=== PATIENT | male | born 1990 | race African-American/Black ===

== ENCOUNTER 2017-11-03 12:51 | Outpatient (CLI) | payer OTHER ==
[2017-11-03] MEDS ORDERED: IOTHALAMATE MEGLUMINE 50 ML VIAL ONE (13:10)
[2017-11-03] MEDS ORDERED: GADOPENTETATE DIMEGLUMINE 5 ML VIAL IVP ONE ×2 (13:11→14:18)
[2017-11-03] MEDS ORDERED: BUFFERED LIDOCAINE 10 ML SYRINGE IU ONE (14:18)
[2017-11-03] MEDS ORDERED: IOTHALAMATE MEGLUMINE 50 ML VIAL IVP ONE (14:18)
--- NOTE | 2017-11-03 15:53 | XRAY Report ---
Procedure Date: 11/03/2017 Accession Number: [id number] / [id number] Procedure: FL - Arthrogram Needle Placement CPT Code: FULL RESULT: EXAM: Arthrogram Needle Placement DATE: 11/03/2017 2:13 PM CLINICAL HISTORY: PAIN IN RIGHT SHOULDER COMPARISON: None. TECHNIQUE: The risks, benefits, and alternatives of the procedure were discussed with the patient. All questions were answered. Written and verbal consent were obtained. The glenohumeral joint was marked under fluoroscopy and prepped and draped in a sterile manner. Local anesthesia was performed with 1% lidocaine. A 22-gauge needle was then inserted into the glenohumeral joint. 10 mL of a solution containing 25% 1% lidocaine, 25% iodinated contrast, and a 1:200 dilution of gadolinium contrast in sterile saline was then injected. The needle was removed without immediate complication. Other: None. Fluoroscopic exposure time: 1 minute 19 seconds. Number of fluoroscopic images: 6. FINDINGS: Bones and joints: No fracture or subluxation. Injection: Fluoroscopic images demonstrate needle placement and contrast in the glenohumeral joint. No contrast extravasation outside of the glenohumeral joint. IMPRESSION: Successful fluoroscopically guided arthrographic injection of the shoulder. [facility]
--- NOTE | 2017-11-04 18:21 | MRI Report ---
Procedure Date: 11/03/2017 Accession Number: [id number] / [id number] Procedure: MRI - Arthrogram Shoulder RT CPT Code: FULL RESULT: EXAM: RIGHT SHOULDER MRI ARTHROGRAM WITH CONTRAST EXAM DATE: 11/03/2017 02:44 PM. CLINICAL HISTORY: Pain in right shoulder. COMPARISON: None. TECHNIQUE: Multiplanar, multisequence T1-weighted and fluid-sensitive sequences of the shoulder after an arthrographic injection of dilute gadolinium, dictated under a separate exam. Other: None. FINDINGS: Acromioclavicular Region: The acromion is type II. 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 The coracoacromial and coracoclavicular ligaments are intact. There is no contrast or fluid in the subacromial/subdeltoid bursa. Glenohumeral Region: Posterior subluxation of the humeral head with respect to the glenoid. Prominent posterior glenohumeral joint loose body. Series 401 image 44, measuring up to 9 mm. The articular cartilage is unremarkable. The glenohumeral ligaments and joint capsule are unremarkable. Bone Marrow: No fracture, marrow edema or bone lesions. Labrum: Long-standing anterior labral tear with attachment to a focal periosteal sleeve. Series 501 image 13. Biceps Tendon: The long head of the biceps tendon and biceps emmanuel are intact. Musculature/Rotator Cuff: The subscapularis, supraspinatus, infraspinatus, and teres minor tendons are intact. No edema or fatty atrophy. Other: The subcutaneous tissues are unremarkable. IMPRESSION: 1. Type II unipartite undersurface osseous acromion shape. AC joint is moderately osteoarthritic.No fluid or contrast material is seen in the bursa. 2. Posterior subluxation of the humeral head with respect to the glenoid, fairly large posterior loose body at the glenohumeral joint measuring up to 9 mm. There also is a long-standing anterior labral tear with an old periosteal sleeve evulsion injury. 3. Long head biceps tendon, and rotator cuff appear unremarkable. [facility] MUSCULOSKELETAL RADIOLOGY SECTION
== END 2017-11-03 12:52 | disposition home or self-care (01) ==
LOC: DI 12:51
PROVIDERS: ATTEND Student in an Organized Health Care Education/Training Program
DX: M19.011 Primary osteoarthritis, right shoulder (principal); S43.021A Posterior subluxation of right humerus, initial encounter; M24.011 Loose body in right shoulder; S43.491A Other sprain of right shoulder joint, initial encounter
CPT/HCPCS: 23350; 73222; 77002; Q9961

== ENCOUNTER 2017-12-30 20:37 | Emergency (ER) | payer OTHER ==
--- NOTE | 2017-12-30 20:59 | ED Physician Documentation ---
PD HPI LOWER EXT INJURY - Stated complaint Stated Complaint: R FOOT PX - Chief complaint Chief Complaint: General - History obtained from History obtained from: Patient - History of Present Illness PD HPI LOW EXT INJURY LOCATION: Right, Knee Type of injury: Fall, Twist Where injury occurred: Park Timing - onset: Today Timing - details: Abrupt onset, Still present Improved by: Immobilization Worsened by: Moving, Palpating Similar symptoms before: Has not had sx before Recently seen: Not recently seen - Additional information Additional information: patient is a 27 year old male with no significant past medical history who is presenting to the emergency department for right knee pain. patient was playing football when he thinks he twisted his knee and then fell on it. patient now has pain on the anterior medial portion of his knee. Review of Systems Ten Systems: 10 systems reviewed and negative Musculoskeletal: reports: Extremity pain, Joint pain, Joint swelling PD PAST MEDICAL HISTORY - Past Surgical History Past Surgical History: No - Allergies Allergies/Adverse Reactions: Allergies Allergy/AdvReac Type Severity Reaction Status Date / Time No Known Drug Allergies Allergy Verified 12/30/17 20:44 - Social History Does the pt smoke?: Yes Smoking Status: Current some day smoker Does the pt drink ETOH?: Yes Does the pt have substance abuse?: No - Immunizations Immunizations are current?: Yes - POLST Patient has POLST: No PD ED PE NORMAL - Vitals Vital signs reviewed: Yes - General General: Alert and oriented X 3 - HEENT HEENT: Atraumatic - Cardiac Cardiac: RRR - Respiratory Respiratory: No respiratory distress - Abdomen Abdomen: Non distended - Derm Derm: Normal color - Neuro Neuro: Alert and oriented X 3, No motor deficit, Normal speech Eye Opening: Spontaneous PD ED PE EXPANDED - Extremities Extremities: Right knee (mild anterior medial tenderness, no joint laxity, small effusion) Results - Vitals Vitals: Vital Signs - 24 hr 12/30/17 20:42 Temperature 37.4 C Heart Rate 91 Respiratory 16 Rate Blood Pressure 142/77 H O2 Saturation 97 Oxygen O2 Source Room air - Rads (name of study) right knee Radiology: Final report received (no acute fracture or dislocation) PD MEDICAL DECISION MAKING - ED course Complexity details: reviewed old records, reviewed results, re-evaluated patient, considered differential, d/w patient ED course: Patient was seen and examined at bedside. patient was well appearing and in no distress. patient was sent for imaging. when patient returned results were reviewed. there was no acute fracture or dislocation. Patient was placed in an bryan bandage and given crutches. patient was stable for discharge with outpatient follow up. - Sepsis Event Vital Signs: Vital Signs - 24 hr 12/30/17 20:42 Temperature 37.4 C Heart Rate 91 Respiratory 16 Rate Blood Pressure 142/77 H O2 Saturation 97 Oxygen O2 Source Room air Departure - Departure Disposition: Home, Self Care Clinical Impression: Right knee pain Condition: Good Instructions: ED Knee Pain [facility] Follow-Up: NANI LUBIN MD [Primary Care Provider] - Comments: Your diagnostics today are within normal limits. there is no acute fracture or dislocation. You should ice your knee at least 4 times a day and try to keep it elevated. You can wrap it for comfort. You should follow up with your doctor if your symptoms persist as the only definitive test would be to get an mri. You may return to the emergency department at any time for new, worsening or uncontrollable symptoms. Discharge Date/Time: 12/30/17 22:00
--- NOTE | 2017-12-30 21:40 | XRAY Report ---
Reason: knee pain after playing football Procedure Date: 12/30/2017 Accession Number: [id number] / [id number] Procedure: XR - Knee 3 View RT CPT Code: FULL RESULT: EXAM: RIGHT KNEE RADIOGRAPHY EXAM DATE: 12/30/2017 09:15 PM. CLINICAL HISTORY: Knee pain after playing football. COMPARISON: None. TECHNIQUE: 3 views. FINDINGS: Bones: Normal. No fractures or bone lesions. Joints: Normal. No effusion. No subluxations. Soft Tissues: Normal. No soft tissue swelling. IMPRESSION: Normal knee radiography. [facility]
[2017-12-30] MEDS ORDERED: IBUPROFEN 600 MG TABLET PO STA (21:43)
[2017-12-30 21:57] VITALS: BP 137/81
== END 2017-12-30 22:00 | disposition home or self-care (01) ==
LOC: ED 20:37
DX: M25.561 Pain in right knee (principal); F17.200 Nicotine dependence, unspecified, uncomplicated; W18.30XA Fall on same level, unspecified, initial encounter; X50.1XXA Overexertion from prolonged static or awkward postures, initial encounter; W22.8XXA Striking against or struck by other objects, initial encounter; Y93.61 Activity, american tackle football; Y92.830 Public park as the place of occurrence of the external cause
CPT/HCPCS: 73562; 99282; 99283; A9270

== ENCOUNTER 2018-01-26 09:04 | Outpatient (CLI) | payer OTHER ==
--- NOTE | 2018-01-26 13:46 | MRI Report ---
Reason: PAININ RT KNEE Procedure Date: 01/26/2018 Accession Number: [id number] / [id number] Procedure: MRI - Knee RT W/O CPT Code: FULL RESULT: EXAM: RIGHT KNEE MRI WITHOUT CONTRAST EXAM DATE: 01/26/2018 10:00 AM. CLINICAL HISTORY: Pain in right knee. COMPARISON: None. TECHNIQUE: Multiplanar, multisequence T1-weighted and fluid-sensitive sequences of the knee without contrast. Other: None. FINDINGS: Cruciate ligaments: The posterior cruciate ligament appears normal. The anterior cruciate ligament is completely torn. Medial meniscus: Complex tear at the posterior horn with vertical and horizontal components. Vertical tear continues throughout the posterior and mid body. Lateral meniscus: Complex tear involving the inner half of the posterior horn with full-thickness radial component. Collateral ligaments: Soft tissue thickening and edema associated with the medial collateral ligament. Possible partial disruption of a small number of anterior fibers. Otherwise intact. The fibular collateral ligament appears intact. Bones and articular surfaces: Mild cartilage thinning and surface irregularity in the medial and lateral compartments. Prominent marrow edema consistent with bone contusions at the posterior aspect of the medial and lateral tibial plateau as well as the periphery of the mid medial and mid lateral femoral condyles. Moderate-sized joint effusion. There may be some stranding of blood product within the joint effusion superiorly. Moderate cartilage thinning and fissuring at the medial facet of the patella. Possibility of thickened ill-defined medial plica. Extensor mechanism: The patellar tendon and quadriceps insertion appear intact. IMPRESSION: 1. Tear of the anterior cruciate ligament with corresponding bone contusions. 2. Grade 1 versus mild grade 2 sprain of the medial collateral ligament. 3. Moderate-sized joint effusion. 4. Complex full-thickness radial tear at the posterior horn lateral meniscus. 5. Medial meniscus tears including complex horizontal and vertical tear of the posterior horn. Vertical tear at the periphery of the body. [facility] MUSCULOSKELETAL RADIOLOGY SECTION
== END 2018-01-26 09:05 | disposition home or self-care (01) ==
LOC: DI 09:04
PROVIDERS: ATTEND Student in an Organized Health Care Education/Training Program
DX: S83.281A Other tear of lateral meniscus, current injury, right knee, initial encounter (principal); S83.241A Other tear of medial meniscus, current injury, right knee, initial encounter; S83.511A Sprain of anterior cruciate ligament of right knee, initial encounter; S83.411A Sprain of medial collateral ligament of right knee, initial encounter; M25.461 Effusion, right knee

== ENCOUNTER 2018-04-24 06:05 | Day surgery (SDC) | payer OTHER ==
[2018-04-24] MEDS ORDERED: LACTATED RINGERS 1,000 ML IV ONE ×3 (06:50→14:15)
[2018-04-24] MEDS ORDERED: DEXAMETHASONE 4 MG/ML VIAL ONE (07:00)
[2018-04-24] MEDS ORDERED: fentaNYL 100 MCG/2 ML VIAL ONE ×2 (07:00→12:32)
[2018-04-24] MEDS ORDERED: MIDAZOLAM 2 MG/2 ML VIAL ONE (07:00)
[2018-04-24] MEDS ORDERED: ROPIVACAINE 0.5% PF 20 ML AMPULE ONE (07:02)
--- NOTE | 2018-04-24 07:03 | ANESTHESIA ---
Pre-Anesthesia VS, & Labs - Diagnosis Right knee ACL and menuscus tears - Procedure Right knee ACL reconstruction, medial and lateral meniscus repair vs debridement Vital Signs: Temp Pulse Resp BP Pulse Ox 36.7 C 84 18 127/99 H 97 04/24/18 06:30 04/24/18 06:30 04/24/18 06:30 04/24/18 06:30 04/24/18 06:30 Height 6 ft 5 in Weight (kg) 113.4 kg Body Mass Index 28.8 - NPO >8 hours Home Medications and Allergies Home Medications: Ambulatory Orders Ibuprofen [Motrin] 800 mg PO Q8H PRN 04/13/18 Ibuprofen [Motrin] 800 mg PO Q8H PRN 04/13/18 Allergies/Adverse Reactions: Allergies Allergy/AdvReac Type Severity Reaction Status Date / Time No Known Drug Allergies Allergy Verified 04/13/18 12:32 Anes History & Medical History - Anesthetic History Family history of Anesthesia Complications: Denies Family history of Malignant Hyperthermia: Denies - Medical History Cardiovascular: reports: None Pulmonary: reports: None Gastrointestinal: reports: None Urinary: reports: None Neuro: reports: None Musculoskeletal: reports: Other Endocrine/Autoimmune: reports: None Blood Disorders: reports: None Skin: reports: None Smoking Status: Current some day smoker (1 pack/week) Psychosocial: reports: Alcohol (3 mixed drinks/ week) Exam General: Alert, Oriented x3, Cooperative, No acute distress Dental: WNL Mouth Openin Fingerbreadth Neck Mobility: Normal Mallampati classification: II Thyromental Distance: 4-6 cm Respiratory: Lungs clear, Normal breath sounds, No respiratory distress, No accessory muscle use Cardiovascular: Regular rate, Normal S1, Normal S2, No murmurs Mental/Cognitive Status: Alert/Oriented X3, Normal for patient Plan Anesthesia Type: General, Femoral Block (right) Regional Block: Per Surgeon's request for Post Op pain control Consent for Procedure(s) Verified and Reviewed: Yes Code Status: Attempt Resuscitation ASA classification: 2-Mild systemic disease Is this case an emergency?: No
[2018-04-24] MEDS ORDERED: BUPIVACAINE 0.25% PF 30 ML VIAL ONE (07:19)
[2018-04-24] MEDS ORDERED: EPINEPHrine 1 MG/ML AMP ONE (07:19)
[2018-04-24] MEDS ORDERED: ceFAZolin 3 GM in SODIUM CHLORIDE 0.9% 100ML 100 ML IV ONE (08:00)
--- NOTE | 2018-04-24 08:00 | ANESTHESIA PROCEDURE NOTE ---
Diagnosis: Right ACL and meniscal tear Procedure: Right femoral nerve block Consent for Procedure(s) Verified and Reviewed: Yes Height and Weight: Height 6 ft 5 in Weight (kg) 113.4 kg Body Mass Index 28.8 Vital Signs: Temp Pulse Resp BP Pulse Ox 36.7 C 84 18 127/99 H 97 04/24/18 06:30 04/24/18 06:30 04/24/18 06:30 04/24/18 06:30 04/24/18 06:30 Allergies No Known Drug Allergies Allergy (Verified 04/13/18 12:32) Requesting Provider: Abby ASA classification: 2-Mild systemic disease Is this case an emergency?: No Anes. Monitoring and Equipment: Non-invasive BP, Pulse oximetery, Sterile prep and drape Anes. Procedure Start Time: 07:25 Anes. Procedure Stop Time: 07:35 Procedure Notes: After time out was performed and site marked by surgeon, the right groin was prepped with chloroprep. Ultrasound was used to visualize the right femoral ner ve. A 22G stimiplex needle was directed toward the nerve under ultrasound guidance. A total of 30ml of 0.5% ropivicaine plus 4mg decadron was injected around the nerve with adequate spread noted. Patient tolerated the procedure well. A total of 100mcg fentanyl and 2mg versed was given during the procedure for patient comfort. Full evaluation pending.
[2018-04-24] MEDS ORDERED: fentaNYL 100 MCG/2 ML VIAL IVP ONE (10:07)
[2018-04-24] MEDS ORDERED: PROPOFOL 200 MG/20 ML VIAL IVP ONE (10:07)
[2018-04-24] MEDS ORDERED: ePHEDrine 50 MG/ML VIAL IVP ONE (10:07)
[2018-04-24] MEDS ORDERED: KETOROLAC 30 MG/ML VIAL IVP ONE (10:07)
[2018-04-24] MEDS ORDERED: ROCURONIUM 50 MG/5 ML VIAL IVP ONE (10:07)
[2018-04-24] MEDS ORDERED: LIDOCAINE-MPF 2% 5 ML VIAL IM ONE (10:07)
[2018-04-24] MEDS ORDERED: ONDANSETRON 4 MG/2 ML VIAL IVP ONE (10:07)
[2018-04-24] MEDS ORDERED: ONDANSETRON 4 MG/2 ML VIAL IVP PRN (12:03)
[2018-04-24] MEDS ORDERED: oxyCODONE 5 MG TABLET PO PRN (12:03)
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
[2018-04-24] MEDS: HYDROmorphone 1 MG/ML CARPUJECT ONE ×2 (12:35→12:45)
[2018-04-24] MEDS ORDERED: ONDANSETRON 4 MG/2 ML VIAL ONE (12:50)
[2018-04-24] MEDS ORDERED: oxyCODONE 5 MG TABLET ONE (13:36)
[2018-04-24 14:34] VITALS: BP 126/76
--- NOTE | 2018-04-24 15:13 | XRAY Report ---
Reason: s/p ACL recon, in PACU Procedure Date: 04/24/2018 Accession Number: [id number] / [id number] Procedure: XR - Knee 2 View RT CPT Code: FULL RESULT: EXAM: RIGHT KNEE RADIOGRAPHY EXAM DATE: 04/24/2018 12:42 PM. CLINICAL HISTORY: Status post ACL recon, in PACU. COMPARISON: Right knee 3 views 12/30/2017. TECHNIQUE: 2 views. FINDINGS: Bones: Postsurgical changes with no fracture or dislocation. Joints: Interval placement of a tibial anchoring screw as well as an ACL repair anchor along the lateral aspect of the femoral condyle consistent with ACL repair. Soft Tissues: Soft tissue gas consistent with immediate postoperative state. IMPRESSION: ACL repair. [facility]
== END 2018-04-24 06:06 | disposition home or self-care (01) ==
LOC: SDS 06:05
PROVIDERS: ATTEND Orthopaedic Surgery
PROC: 0SBC4ZZ Excision of Right Knee Joint, Percutaneous Endoscopic Approach (ICD-10-PCS; 2018-04-24)
PROC: 0MRN47Z Replacement of Right Knee Bursa and Ligament with Autologous Tissue Substitute, Percutaneous Endoscopic Approach (ICD-10-PCS; 2018-04-24)
PROC: 0LBQ0ZZ Excision of Right Knee Tendon, Open Approach (ICD-10-PCS; 2018-04-24)
PROC: 0SQC4ZZ Repair Right Knee Joint, Percutaneous Endoscopic Approach (ICD-10-PCS; principal; 2018-04-24 07:30)
DX: S83.511A Sprain of anterior cruciate ligament of right knee, initial encounter (principal); S83.231A Complex tear of medial meniscus, current injury, right knee, initial encounter; S83.281A Other tear of lateral meniscus, current injury, right knee, initial encounter; X50.1XXA Overexertion from prolonged static or awkward postures, initial encounter; Y93.61 Activity, american tackle football; Y99.8 Other external cause status; F17.210 Nicotine dependence, cigarettes, uncomplicated
CPT/HCPCS: 29882; 29888; 73560; A9270; J1170; J7120

== ENCOUNTER 2018-05-22 16:33 | Emergency (ER) | payer OTHER ==
[2018-05-22 16:47] VITALS: BP 143/68
--- NOTE | 2018-05-22 16:49 | ED Physician Documentation ---
PD HPI HEENT - Stated complaint Stated Complaint: FEVER/SORE THROAT - History obtained from History obtained from: Patient - History of Present Illness Timing - onset: Yesterday Timing - details: Still present Location: Throat Worsens: [place] Associated symptoms: Fever, Cough Similar symptoms before: Has not had sx before - Additional information Additional information: The patient is an otherwise healthy 27-year-old male who presents with sore throat that started last night and is worse today. He has had fever and chills, and measured his temperature at 102.5 earlier today. He took Tylenol at noon, 4-1/2 hours prior to arrival. He reports cough that is productive of scant sputum production. He denies headache, nausea or vomiting, or myalgias. He denies history of similar symptoms in the past. Vaccinations are up-to-date. Review of Systems Constitutional: reports: Fever, Chills Ears: denies: Ear pain Nose: denies: Congestion Throat: reports: Sore throat Cardiac: denies: Chest pain / pressure Respiratory: reports: Cough. denies: Dyspnea GI: denies: Abdominal Pain, Nausea, Vomiting : denies: Dysuria Skin: denies: Rash Musculoskeletal: denies: Back pain Neurologic: denies: Headache PD PAST MEDICAL HISTORY - Past Medical History Cardiovascular: None Respiratory: None Neuro: None Endocrine/Autoimmune: None GI: None : None HEENT: None Psych: None Musculoskeletal: Other Derm: None - Past Surgical History Past Surgical History: No - Present Medications Home Medications: Ambulatory Orders Medication Instructions Recorded Confirmed Ibuprofen [Motrin] 800 mg PO Q8H PRN 04/13/18 04/13/18 - Allergies Allergies/Adverse Reactions: Allergies Allergy/AdvReac Type Severity Reaction Status Date / Time No Known Drug Allergies Allergy Verified 04/13/18 12:32 - Social History Does the pt smoke?: Yes Smoking Status: Current some day smoker (1 pack/week) Does the pt drink ETOH?: Yes Does the pt have substance abuse?: No - Immunizations Immunizations are current?: Yes - POLST Patient has POLST: No PD ED PE NORMAL - Vitals Vital signs reviewed: Yes (Febrile and tachycardic.) - General General: Alert and oriented X 3, Well developed/nourished - HEENT HEENT: Atraumatic, Other (Oropharynx is erythematous without peritonsillar swelling or exudates.) - Neck Neck: Supple, no meningeal sign, Other (Mildly enlarged anterior cervical nodes bilaterally.) - Cardiac Cardiac: RRR, No murmur - Respiratory Respiratory: No respiratory distress, Clear bilaterally - Abdomen Abdomen: Soft, Non tender - Back Back: No CVA TTP - Derm Derm: No rash - Extremities Extremities: No edema, No calf tenderness / cord - Neuro Neuro: Alert and oriented X 3, No motor deficit, Normal speech Results - Vitals Vitals: Oxygen O2 Source Room air - Labs Labs: Microbiology 05/22/18 16:43 Group A Strep Throat Culture - Final Throat Beta Hemolytic Strep Group G Laboratory Tests 05/22/18 16:43 Group A Strep Rapid Negative PD MEDICAL DECISION MAKING - ED course Complexity details: reviewed results, re-evaluated patient, considered differential, d/w patient, d/w family ED course: The patient's presentation is most consistent with acute viral pharyngitis. Rapid strep screen is negative. His presentation does not suggest meningitis, peritonsillar abscess, or pneumonia. Treatment in the emergency department included administration of ibuprofen 800 mg orally. I discussed with him the expected course of illness, symptomatic treatment and outpatient follow-up, as well as potentially worrisome signs or symptoms that should prompt reevaluation in the emergency department. Departure - Departure Disposition: 01 Home, Self Care Clinical Impression: Acute viral pharyngitis Condition: Stable Instructions: ED Pharyngitis Viral, ED Headache Migraine Follow-Up: Flori Rubio MD [Primary Care Provider] - Comments: Gargle with cool liquids. You can use Tylenol or ibuprofen as needed for fever or discomfort. Follow-up with your primary physician within 2 weeks. Call to schedule an appointment. Return to the emergency department if you develop increasing difficulty swallowing, or otherwise worsening symptoms. Forms: Activity restrictions Discharge Date/Time: 05/22/18 17:30
[2018-05-22] MEDS ORDERED: IBUPROFEN 800 MG TABLET PO STA (17:18)
== END 2018-05-22 17:30 | disposition home or self-care (01) ==
LOC: ED 16:33
DX: J02.9 Acute pharyngitis, unspecified (principal); B97.89 Other viral agents as the cause of diseases classified elsewhere; F17.200 Nicotine dependence, unspecified, uncomplicated
CPT/HCPCS: 87070; 87077; 87430; 99282; 99283; A9270

== ENCOUNTER 2018-08-31 09:20 | Outpatient (CLI) | payer OTHER | END 2018-08-31 09:21 | disposition home or self-care (01) | LOC: SC 09:20 | PROVIDERS: ATTEND Internal Medicine Pulmonary Disease | DX: R06.83 Snoring (principal); G47.8 Other sleep disorders; G47.10 Hypersomnia, unspecified; R06.81 Apnea, not elsewhere classified | CPT/HCPCS: 99203; 99212 ==

== ENCOUNTER 2018-09-20 19:11 | Outpatient (CLI) | payer OTHER | END 2018-09-20 19:12 | disposition home or self-care (01) | LOC: SC 19:11 | PROVIDERS: ATTEND Internal Medicine Pulmonary Disease | DX: G47.33 Obstructive sleep apnea (adult) (pediatric) (principal); G47.61 Periodic limb movement disorder; E66.3 Overweight; Z68.36 Body mass index [BMI] 36.0-36.9, adult | CPT/HCPCS: 95810 ==

== ENCOUNTER 2018-10-09 07:07 | Emergency (ER) | payer OTHER ==
[2018-10-09 07:25] VITALS: BP 142/86
[2018-10-09] MEDS ORDERED: IBUPROFEN 800 MG TABLET PO STA (07:27)
--- NOTE | 2018-10-09 07:30 | ED Physician Documentation ---
PD HPI HEADACHE - Stated complaint Stated Complaint: MIGRAINE/CONGESTED/COUGH - Chief complaint Chief Complaint: General - History obtained from History obtained from: Patient - History of Present Illness Timing - onset: Yesterday Timing - details: Gradual onset Worst headache ever?: Worst headache ever? (No) Location: Front Quality: Aching Contributing factors: Recent illness (Upper respiratory symptoms.) Similar symptoms before: Diagnosis (History of migraines.) - Additional information Additional information: Patient is a 28-year-old male who presents with frontal headache that started yesterday and is described as aching. It is similar to previous headaches. He also reports congestion and nonproductive cough. He has taken Tylenol without relief. He denies sore throat, abdominal pain, or fever. His partner has a son who attends daycare, and is currently sick with upper respiratory infection. Review of Systems Constitutional: denies: Fever Eyes: denies: Photophobia, Irritation Ears: denies: Ear pain Nose: reports: Congestion Throat: denies: Sore throat Cardiac: denies: Chest pain / pressure Respiratory: reports: Cough. denies: Dyspnea GI: denies: Abdominal Pain, Nausea, Vomiting : denies: Dysuria Skin: denies: Rash Musculoskeletal: denies: Neck pain Neurologic: reports: Headache. denies: Focal weakness, Numbness PD PAST MEDICAL HISTORY - Past Medical History Past Medical History: No Cardiovascular: None Respiratory: None Neuro: None Endocrine/Autoimmune: None GI: None : None HEENT: None Psych: None Musculoskeletal: Other Derm: None - Past Surgical History Past Surgical History: Yes Ortho: Arthroscopic surgery - Present Medications Home Medications: Ambulatory Orders Medication Instructions Recorded Confirmed No Known Home Medications 10/09/18 10/09/18 - Allergies Allergies/Adverse Reactions: Allergies Allergy/AdvReac Type Severity Reaction Status Date / Time No Known Drug Allergies Allergy Verified 10/09/18 07:25 - Social History Does the pt smoke?: Yes Smoking Status: Current every day smoker Does the pt drink ETOH?: Yes Does the pt have substance abuse?: No - Immunizations Immunizations are current?: Yes - POLST Patient has POLST: No PD ED PE NORMAL - Vitals Vital signs reviewed: Yes (Borderline hypertension) - General General: Alert and oriented X 3, Well developed/nourished - HEENT HEENT: Atraumatic, PERRL, EOMI, Ears normal, Pharynx benign, Other (Fundi with sharp disc margins without papilledema.) - Neck Neck: Supple, no meningeal sign, No adenopathy, No JVD - Cardiac Cardiac: RRR, No murmur - Respiratory Respiratory: No respiratory distress, Clear bilaterally - Abdomen Abdomen: Soft, Non tender - Back Back: No CVA TTP - Derm Derm: No rash - Extremities Extremities: No edema, No calf tenderness / cord - Neuro Neuro: Alert and oriented X 3, No motor deficit, Normal speech Results - Vitals Vitals: Vital Signs - 24 hr 10/09/18 07:22 Temperature 36.8 C Heart Rate 88 Respiratory 16 Rate Blood Pressure 142/86 H O2 Saturation 96 Oxygen O2 Source Room air PD MEDICAL DECISION MAKING - ED course Complexity details: reviewed old records, considered differential, d/w patient, d/w family ED course: The patient's presentation is most consistent with viral upper respiratory infection with associated headache. His presentation does not suggest meningitis, and I doubt sinusitis. His headache is more likely part of his viral syndrome than it is a migraine. Treatment in the emergency department included administration of ibuprofen 800 mg orally. I discussed with him and his partner the expected course of illness, symptomatic treatment and outpatient follow-up, as well as potentially worrisome signs or symptoms that should prompt reevaluation in the emergency department. Departure - Departure Disposition: 01 Home, Self Care Clinical Impression: Viral URI, Headache due to viral infection Condition: Stable Instructions: ED Viral Syndrome Follow-Up: Flori Rubio MD [Primary Care Provider] - Comments: Drink plenty of fluids. You can use ibuprofen, up to 800 mg 3 times daily for headache or muscle aches. Follow-up with your primary physician within 1 to 2 weeks. Call to schedule appointment. Return to the emergency department if you develop increasing headache, increasing difficulty breathing, or otherwise worsening symptoms. Forms: Activity restrictions
== END 2018-10-09 07:36 | disposition home or self-care (01) ==
LOC: ED 07:07
DX: J06.9 Acute upper respiratory infection, unspecified (principal); R51 Headache; F17.200 Nicotine dependence, unspecified, uncomplicated
CPT/HCPCS: 99281; 99284; A9270

== ENCOUNTER 2018-11-09 15:11 | Outpatient (CLI) | payer OTHER ==
--- NOTE | 2018-11-09 15:34 | SLEEP CARE CONSULTATION ---
Information from patient questionnaire entered by Elba Solorio. I have reviewed and concur with the information entered by Elba Solorio. This document represents the service I personally performed and the decisions made by me, Rommel Combs MD, [facility]. History of Present Illness Initial [place] Sleepiness Scale score: 17 Current [place] Sleepiness Scale score: 18 Additional HPI information: HPI: Mr. Sher returned for follow up of the sleep study he had on 09/20/2018. The polysomnography showed that the patient had normal sleep efficiency. The sleep architecture was normal as well. Respiratory monitoring showed mild obstructive sleep apnea-hypopnea (AHI = 6.3) associated with oxyhemoglobin desaturation and mild hypoxia (rimma oxygen saturation of 87%) but not sleep fragmentation. The respiratory events occurred independently of sleep stage and body position (supine AHI = 5.2; non-supine = 6.61). Snore was loud in intensity. There was mild periodic leg movement of sleep not associated with sleep fragmentation. Cardiac rhythm was normal sinus rhythm without significant arrhythmia. No abnormal behavior (parasomnia) observed during the night. The patient was informed of these findings. I explained to him the path ophysiology behind obstructive sleep apnea. We then spent quite a bit of time discussing different treatment options. For mild obstructive sleep apnea, surgery and oral appliance are alternatives to nasal CPAP therapy but in moderate or severe cases, nasal CPAP is the most effective and reliable treatment. Weight loss in an obese individual is strongly recommended. After some discussion, he opted to go with the nasal CPAP therapy. I explained to him how CPAP machine works and what to expect when using the machine. Allergies and Home Medications Home medication list reviewed: Yes Review of Systems Review of systems same as previous: Yes Impression and Plan IMPRESSION: 1. Obstructive Sleep Apnea-Hypopnea Syndrome, mild, associated with mild hypoxemia and sleep fragmentation. Possibly, this is the cause of the patients symptoms of unrefreshed sleep, and excessive daytime sleepiness. As mentioned above, the patient will return for a manual CPAP/BiPAP titration study. PLAN: 1. Schedule a manual CPAP/BiPAP titration study. 2. Attempt to lose weight and avoid alcohol consumption near bedtime. 3. Return for follow up after the sleep study. This visit is time-based and I spent 15 minutes with the patient and more than 50% of the time was spent counseling the patient.
== END 2018-11-09 15:12 | disposition home or self-care (01) ==
LOC: SC 15:11
PROVIDERS: ATTEND Internal Medicine Pulmonary Disease
DX: G47.33 Obstructive sleep apnea (adult) (pediatric) (principal)
CPT/HCPCS: 99212; 99213

== ENCOUNTER 2018-11-24 20:52 | Outpatient (CLI) | payer OTHER | END 2018-11-24 20:53 | disposition home or self-care (01) | LOC: SC 20:52 | PROVIDERS: ATTEND Internal Medicine Pulmonary Disease | DX: G47.33 Obstructive sleep apnea (adult) (pediatric) (principal); G47.61 Periodic limb movement disorder | CPT/HCPCS: 95811 ==

== ENCOUNTER 2018-12-10 09:07 | Day surgery (SDC) | payer OTHER ==
[2018-12-10] MEDS ORDERED: LACTATED RINGERS 1,000 ML IV ONE ×2 (09:13→13:30)
[2018-12-10] MEDS ORDERED: cefTRIAXone 2 GM VIAL ONE (09:22)
--- NOTE | 2018-12-10 10:19 | ANESTHESIA ---
Pre-Anesthesia VS, & Labs - Diagnosis right shoulder instability - Procedure Right shoulder arthroscopy, labral repair Vital Signs: Temp Pulse Resp BP Pulse Ox 36.1 C L 74 15 98/77 98 12/10/18 09:27 12/10/18 09:27 12/10/18 09:27 12/10/18 09:27 12/10/18 09:27 Height 6 ft 5 in Weight (kg) 122.47 kg Body Mass Index 30.8 - NPO >8 hours Home Medications and Allergies No Known Home Medications 10/09/18 Allergies/Adverse Reactions: Allergies Allergy/AdvReac Type Severity Reaction Status Date / Time No Known Drug Allergies Allergy Verified 12/01/18 11:35 Anes History & Medical History - Anesthetic History Anesthesia Complications: reports: No previous complications - Medical History Cardiovascular: reports: None Pulmonary: reports: Sleep apnea Gastrointestinal: reports: None Urinary: reports: None Neuro: reports: None Musculoskeletal: reports: Other Endocrine/Autoimmune: reports: None Blood Disorders: reports: None Skin: reports: None Smoking Status: Current every day smoker - Surgical History Orthopedic: ACL reconstruction Exam General: Alert Dental: WNL Mouth Opening: Greater than 4 Fingerbreadths Neck Mobility: Normal Mallampati classification: II Thyromental Distance: greater than 6 cm Respiratory: Lungs clear Cardiovascular: Regular rate, Normal S1, Normal S2 Plan Anesthesia Type: General, Interscalene Block Consent for Procedure(s) Verified and Reviewed: Yes Code Status: Attempt Resuscitation ASA classification: 2-Mild systemic disease Is this case an emergency?: No
[2018-12-10] MEDS ORDERED: fentaNYL 100 MCG/2 ML VIAL ONE (12:17)
[2018-12-10] MEDS ORDERED: MIDAZOLAM 2 MG/2 ML VIAL ONE (12:17)
[2018-12-10] MEDS ORDERED: EPINEPHrine 1 MG/ML AMP ONE (12:47)
[2018-12-10] MEDS ORDERED: ONDANSETRON 4 MG/2 ML VIAL IVP PRN (16:11)
[2018-12-10] MEDS ORDERED: oxyCODONE 5 MG TABLET PO PRN (16:11)
--- NOTE | 2018-12-10 16:51 | OPERATIVE REPORT ---
Operative Report - General Procedure Date: 12/10/18 Planned Procedure: Right shoulder arthroscopy, labral repair Pre-Op Diagnosis: Right shoulder instability, anterior inferior labral tear Procedure Performed: Right shoulder arthroscopy, arthroscopic Bankart repair, limited intra-articular debridement, loose body removal Post Op Diagnosis: Right shoulder Bankart lesion, glenoid chondromalacia, loose body - Procedure Note Primary Surgeon: BG ELLINGTON Secondary Surgeon: SHOSHANA HAIR Anesthesia Technique: General ET tube, Regional block Estimated Blood Loss (mL): 5 - Other Other Information/Narrative: DETAILED PROCEDURE: Labral repair from 3:00 to 6:00 IMPLANTS: Arthrex knotless suture tack x4 POSTOPERATIVE PLAN: 0-2 weeks-Sling at all times. Pendulum exercises 5 times per day. 2-6 weeks-Passive range of motion with the following limits: FF to 90, ER to 20, abduction to 90 6-12 weeks-Active range of motion in all planes without limitation. Isometric rotator cuff strengthening is allowed 12-16 weeks-Gradually increase strengthening 16 weeks and beyond-Introduce dynamic activities EXAMINATION UNDER ANESTHESIA: ROM: Forward flexion 180; abduction 165, ABER 90, AB IR 85 Anterior load and shift: 2+ Posterior load and shift: 1+ ARTHROSCOPIC FINDINGS: Rotator interval: Diffuse fraying and synovitis Biceps tendon & SLAP: Fraying of the superior labrum, with small peelback but superior labrum otherwise intact. Biceps tendon intact and without injection Subscapularis: Intact Rotator Cuff: Scattered articular sided fraying near the insertion HAGL: None Labrum: Large anterior sub-labral foramen, torn and scarred back anterior inferior labral tear with significant fraying and degeneration, posterior labrum from 6:00 on stable to probing Cartilage: Large anteroinferior glenoid chondral lesion, with near full- thickness delamination and exposed subchondral bone. Posterior glenoid with minimal wear. Humeral head w/o significant wear. 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 He reports a football injury with dislocation when he was 24 or 25, and since that event he has experienced recurrent sensations of instability and pain in his shoulders in certain positions such as abduction and external rotation or loading with the arm above the head. MRI was consistent with an old anterior inferior labral tear, that it secondarily healed to the glenoid neck, as well as an intra-articular loose body. Extensive nonoperative managment failed to resolve symptoms. The risks, benefits, and alternatives were discussed. Risks included pain, bleeding, infection, damage to nearby structures, lack of symptom relief, implant complications, stiffness, need for further surgeries, DVT, PE, stroke, and even . He signed a written consent form. PROCEDURE IN DETAIL: The patient was met in the preoperative holding on the day of the procedure. Operative extremity was signed. Consent was verified. He desired to proceed. Regional anesthesia was obtained in the preoperative area. They were brought to the operating room and surrendered to anesthesia. Once general anesthesia was obtained they were placed in the lateral decubitus position with the operative side up. An axillary roll was placed and all bony p rominences were well-padded. They were then prepped and draped in the standard sterile fashion. A surgical timeout was held to confirm the patient procedure, identity, procedure, laterality, allergies, images, and antibiotics. All were in agreement we proceeded. Balanced suspension was applied using the Arthrex STAR sleeve and tower and a standard diagnostic arthroscopy was performed utilizing posterior and anterior superior portal sites. The anterior superior portal site was created under direct visualization. The findings of the diagnostic arthroscopy can be found above. A mid glenoid portal was then created under direct visualization bordering the subscapularis tendon. I then used a combination of high and low angled elevators to develop the labral tear and release it from off the glenoid neck. I then used to the pineapple rasp to finalize my release and abraded the bone to a bleeding bed. A sucker shaver was placed in the interval to debride any loose tissue and further abrade the glenoid neck. Probing and attempted elevation of the posterior labrum, revealed a well attached labrum, without evidence of a Renee lesion. The arthroscopic sucker shaver was then used to debride any loose cartilage or frayed labral tissue in preparation for labral repair. I established a percutaneous 7:00 portal utilizing the Arthrex system. I then sequentially placed anchors starting at the 6:00 position. The suture was passed using an appropriate 45 degree suture lasso. The labrum was secured using knotless technique. Appropriate tension was confirmed with a probe and the excess suture was cut. Using the same technique additional anchors were placed at 5:00, 4:00 and 3:00. For the 5:00 anchor, the initial anchor (knotless suture tack) that was drilled and placed, failed as the suture was being tensioned. This suture was used as a traction stitch, while a new 5:00 anchor was placed. We redrilled a new hole for a new knotless suture tack, and this was accomplished without further difficulty, the traction stitch was then removed. The remaining 2 anchors were placed at the 4:00 and 3:00 positions as previously described. Following labral repair, distraction was released, with good settling and centering of the humeral head on the glenoid. The proper capsular tension was restored and a robust anterior inferior labral bumper was recreated. The portal sites were then closed with 3-0 Monocryl buried. Mastisol and Steri- Strips were applied. A sterile dressing and a sling was applied. He was awakened and transferred to the recovery room.
[2018-12-10 17:21] VITALS: BP 112/62
== END 2018-12-10 09:08 | disposition home or self-care (01) ==
LOC: SDS 09:07
PROVIDERS: ATTEND Orthopaedic Surgery
PROC: 0RQJ4ZZ Repair Right Shoulder Joint, Percutaneous Endoscopic Approach (ICD-10-PCS; principal; 2018-12-10 10:00)
DX: M25.311 Other instability, right shoulder (principal); M75.81 Other shoulder lesions, right shoulder; M94.211 Chondromalacia, right shoulder; M24.011 Loose body in right shoulder; S43.491A Other sprain of right shoulder joint, initial encounter; G47.30 Sleep apnea, unspecified; F17.200 Nicotine dependence, unspecified, uncomplicated
CPT/HCPCS: 29806; C1713; J7120

== ENCOUNTER 2018-12-15 03:21 | Emergency (ER) | payer OTHER ==
--- NOTE | 2018-12-15 03:39 | ED Physician Documentation ---
PD HPI WOUND RECHECK - Stated complaint Stated Complaint: ITCHY SUTURES - Chief complaint Chief Complaint: Wound - Histroy obtained from History obtained from: Patient - History of Present Illness Location: Right Upper Extremity Timing - onset: How many days ago (2-3) Associated symptoms: Drainage. No: Fever, Redness, Swelling Recently seen: Surgery - Additional information Additional information: underwent right shoulder arthroscopic surgery last week, c/o pruritis at surgical sites x 3 days. He notes scant drainage from some of the sites. Pain has been steadily improving since surgery. Denies fever, chills, sweats Review of Systems Constitutional: denies: Fever, Chills, Sweats Musculoskeletal: reports: Joint pain (right shoulder pain since surgery which has been steadily improving) PD PAST MEDICAL HISTORY - Past Medical History Past Medical History: No Cardiovascular: None Respiratory: None Neuro: None Endocrine/Autoimmune: None GI: None : None HEENT: None Psych: None Musculoskeletal: Other Derm: None - Past Surgical History Past Surgical History: Yes Ortho: Arthroscopic surgery - Present Medications Home Medications: Ambulatory Orders Medication Instructions Recorded Confirmed No Known Home Medications 10/09/18 12/01/18 - Allergies Allergies/Adverse Reactions: Allergies Allergy/AdvReac Type Severity Reaction Status Date / Time No Known Drug Allergies Allergy Verified 12/01/18 11:35 - Social History Does the pt smoke?: No Smoking Status: Never smoker Does the pt drink ETOH?: Yes Does the pt have substance abuse?: No - Immunizations Immunizations are current?: Yes - POLST Patient has POLST: No PD ED PE NORMAL - Vitals Vital signs reviewed: Yes - General General: Alert and oriented X 3, No acute distress, Well developed/nourished - Derm Derm: Normal color, Warm and dry - Extremities Extremities: No tenderness to palpate, No edema PD ED PE EXPANDED - Extremities Extremities: Other (steri-strips removed from the four surgical sites; there is no erythema, no abnormal / increased warmth to touch. There is scant serosanguinous drainage from two of the sites which have clear vesicles limited to area that had been covered by the steri-strips. ) Results - Vitals Vitals: Oxygen O2 Source Room air PD MEDICAL DECISION MAKING - ED course Complexity details: considered differential, d/w patient ED course: exam is most c/w local reaction to adhesive/steri-strips (pruritic clusters of clear vesicles). the arthroscopic sites are all clean, dry, and intact. Departure - Departure Disposition: 01 Home, Self Care Clinical Impression: Contact dermatitis Condition: Good Instructions: ED Dermatitis Contact Follow-Up: Flori Rubio MD [Primary Care Provider] - Discharge Date/Time: 12/15/18 05:01
[2018-12-15] MEDS ORDERED: BACITRACIN ZINC OINT 14 GM TOP STA (04:14)
[2018-12-15 05:01] VITALS: BP 150/98
== END 2018-12-15 05:01 | disposition home or self-care (01) ==
LOC: ED 03:21
DX: L25.8 Unspecified contact dermatitis due to other agents (principal)
CPT/HCPCS: 99282; A9270

== ENCOUNTER 2018-12-21 14:16 | Outpatient (CLI) | payer OTHER ==
--- NOTE | 2018-12-21 14:45 | SLEEP CARE CONSULTATION ---
Information from patient questionnaire entered by Elba Solorio. I have reviewed and concur with the information entered by Elba Solorio. This document represents the service I personally performed and the decisions made by me, Rommel Combs MD, [facility]. History of Present Illness Initial [place] Sleepiness Scale score: 17 Current [place] Sleepiness Scale score: 16 Additional HPI information: HPI: Mr. Sher returns for follow up of the sleep study (a manual CPAP titration study) he had on 11/24/2018. The polysomnography showed that CPAP was initiated at 4 cmH2O and titrated up to CPAP at 8 cmH2O. CPAP at 6 cmH2O appeared to be optimal (AHI of 0 per hour on the pressure). There was supine REM sleep on the pressure. Oxygen saturation was normal throughout the night. Lower CPAP settings appeared adequate as well. The patient tolerated positive airway pressure therapy very well. The patients sleep efficiency was normal. The sleep architecture was normal as well.. There was mild periodic limb movement of sleep not associated with sleep fragmentation. Cardiac rhythm was normal sinus rhythm without significant arrhythmia. No abnormal behavior (parasomnia) observed during the night. Respironics Wisp nasal mask and Respironics DreamWear nasal cushion mask were used. The patient was informed of these findings. The patient has not been started on the positive airway pressure therapy yet. Allergies and Home Medications Drug allergies reviewed: Yes Home medication list reviewed: Yes Review of Systems Review of systems same as previous: Yes Physical Exam Weight (kg): 269 lb Impression and Plan IMPRESSION: 1. Obstructive Sleep Apnea-Hypopnea Syndrome, mild, adequately controlled with low CPAP of 6 cmH2O. He tolerated CPAP well during the sleep study and actually felt better in the morning. I will order him an autoCPAP set between 4 and 8 cmH2O. I anticipate good treatment compliance. PLAN: 1. Prescription made for an autoCPAP, heated humidifier, and related supplies. 2. Attempt to lose some weight. 3. Try ResMed N30i mask. 4. Return for follow up in one year. I spent 100% of the 15 minute visit [id number] with the patient with greater than 50% of this was spent time counseling the patient and coordination of care.
== END 2018-12-21 14:17 | disposition home or self-care (01) ==
LOC: SC 14:16
PROVIDERS: ATTEND Internal Medicine Pulmonary Disease
DX: G47.33 Obstructive sleep apnea (adult) (pediatric) (principal)
CPT/HCPCS: 99212; 99213

== ENCOUNTER 2019-05-11 13:15 | Outpatient (CLI) | payer OTHER ==
[2019-05-11 14:03] VITALS: BP 118/80
--- NOTE | 2019-05-11 14:03 | SLEEP CARE CONSULTATION ---
Information from patient questionnaire entered by Elba Solorio. I have reviewed and concur with the information entered by Elba Solorio. This document represents the service I personally performed and the decisions made by me, Chapis Grey, RN, MSN, [employer]. History of Present Illness Previous diagnosis: Mild, Obstructive Sleep Apnea-Hypopnea Syndrome AHI: 6.3 Reason for follow up: first compliance Equipment type: CPAP Equipment obtained from: [employer] Mask style: Nasal ([place]) Mask brand: Respironics Backup mask available: Yes (nuance pillows ) Last cushion change: a week ago Prior sleep studies: Yes CPAP Compliance Data - Data Reviewed with Patient Average duration of nightly device use: 1H 49M Compliance rate %: 6.7 (5 hours average 02/12 to 03/13 and 70% compliance ) Current pressure setting (cmH2O): 4-8 Humidity settin Heated hose settin Average residual AHI: 0.3 Average large leak: 0s Subjective Missed days of use due to: reports: other (missed days due to insufficient pressure. Patient was waking to pressure too low or mask off ) Patient concerns: reports: mask discomfort (better with larger cushion but present now when sleeps on side and mask pushes into pillow ), dry mouth, nose, throat (resolved with increased humidity ), other (low air). denies: aerophagia, air blowing in eyes, mask leak noise, condensation in mask/hose, nasal congestion, epistaxis Observed to snore while using device: No Current pressure setting perceived as: too low (most nights - he notices it is comfortable if over 6cmH20) On therapy, patient: reports: sleeping better, awakening more refreshed, being more awake and alert during the day, more rested overall, drowsiness while driving (notices increased fatigue with long distances - ) Initial [place] Sleepiness Scale score: 17 Current [place] Sleepiness Scale score: 14 Allergies and Home Medications Known drug allergies: Yes (adhesive ) Home medication list reviewed: No (none) Review of Systems Review of systems same as previous: Yes Physical Exam Blood Pressure: 118/80 Cuff size: long Heart Rate: 76 O2 Saturation: 97 Height: 6 ft 5 in Weight: 279 lb 3.2 oz Body Mass Index: 33.0 BMI Classification: Obese Impression and Plan 1. Obstructive Sleep Apnea-Hypopnea Syndrome, mild, with good treatment compliance and good apnea control from 02/12 to 03/13/19. However, in March the pressure seemed too low and patient was not comfortable using and would wake with mask off of face. Thus I will increase autoCPAP pressure to 6-9cmH20. Deyanira nt advised to contact me if pressure insufficient or uncomfortable . On CPAP therapy, the patient has better sleep quality and is more rested overall. To reduce mask discomfort when sleeping on his side, I showed him a CPAP pillow sample. This and other styles can be found on line for about $60. I also counseled him to avoid long distance driving until sleepiness symptoms resolved and he agreed with plan. He is also to increase humidity back up for oral dryness. Patient's apnea severity and rationale for treatment to reduce apnea, improve sleep quality and reduce cardiovascular and cerebrovascular events was reviewed. * Change CPAP pressure to 6-9 cmH2O * Consider CPAP pillow * Adjust humidity * Notify me if snoring with mask or feeling that the pressure is too much or too little * Attempt to lose weight * Call this office if any problems using CPAP * Return for follow up in 1-2 months, or sooner if concerns arise Time Spent with Patient (minutes): 30 I spent 100% of this visit face to face with the patient with greater than 50% of this was spent time counseling the patient and coordination of care.
== END 2019-05-11 13:16 | disposition home or self-care (01) ==
LOC: SC 13:15
PROVIDERS: ATTEND Nurse Practitioner Family
DX: G47.33 Obstructive sleep apnea (adult) (pediatric) (principal); E66.9 Obesity, unspecified; Z68.33 Body mass index [BMI] 33.0-33.9, adult
CPT/HCPCS: 99212; 99214